=== PATIENT | male | born 1990 | race Caucasian/White ===

== ENCOUNTER 2019-02-20 13:29 | Emergency (ER) | payer MEDICAID, OTHER ==
[~2019-02-20] VITALS: Ht 182.9 cm; Wt 74.0 kg
[~2019-02-20 13:29] MED LIST: LIDOcaine 1% w/EPI 1:100,000 30ml vial (MDV) ONE
[2019-02-20 13:38] VITALS: BP 124/79
[2019-02-20] MEDS ORDERED: TETanus/Pertussis (Acell)/Diphther VAC/PF (Tdap-Adult) 0.5ml syringe IMVAC ONE (15:05)
== END 2019-02-20 15:42 | disposition home or self-care (01) ==
LOC: ER 13:31
DX: S61.412A Laceration without foreign body of left hand, initial encounter (principal); S60.511A Abrasion of right hand, initial encounter; Z88.0 Allergy status to penicillin; Z88.1 Allergy status to other antibiotic agents; W22.8XXA Striking against or struck by other objects, initial encounter; Y93.89 Activity, other specified; Y92.89 Other specified places as the place of occurrence of the external cause; Y99.8 Other external cause status
CPT/HCPCS: 12001; 90471; 99283

== ENCOUNTER 2019-03-16 14:15 | Emergency (ER) | payer MEDICAID, OTHER ==
[~2019-03-16] VITALS: Ht 182.9 cm; Wt 77.3 kg
[~2019-03-16 14:15] MED LIST changes: +LIDOcaine 1% 30ml preserv. free vial ONE; -LIDOcaine 1% w/EPI 1:100,000 30ml vial (MDV) ONE
[2019-03-16] MEDS ORDERED: bacitracin 15gm ointment TP ONE (15:35)
--- NOTE | 2019-03-16 16:24 | NUR ---
PT BECAME TEARFUL AT DC. STATING TO RN THAT HE WAS SI. NOTIFIED AND IS RE-EVAL PT
[2019-03-16 16:57] LABS: BASOPHILS % (AUTO) 0.5 % (0-1); EOSINOPHILS # (AUTO) 0.1 X10'3 (0-0.9); EOSINOPHILS % (AUTO) 0.8 % (0-6); HEMATOCRIT 46.9 % (42.0-52.0); HEMOGLOBIN 16.3 g/dl (14.0-17.9); LYMPHOCYTES # (AUTO) 1.8 X10'3 (1.1-4.8); LYMPHOCYTES % (AUTO) 21.9 % (21-51); MEAN CORPUSCULAR HEMOGLOBIN 30.3 PG (27.0-31.0); MEAN CORPUSCULAR HGB CONC 34.8 g/dL (33.0-36.5); MEAN CORPUSCULAR VOLUME 87.1 FL (78-98); MEAN PLATELET VOLUME 8.9 FL (7.4-10.4); MONOCYTES # (AUTO) 0.4 X10'3 (0-0.9); MONOCYTES % (AUTO) 5.1 % (2-12); NEUTROPHILS # (AUTO) 5.8 X10'3 (1.8-7.7); NEUTROPHILS % (AUTO) 71.7 % (42-75); PLATELET COUNT 174 X10'3 (140-440); RED BLOOD COUNT 5.38 X10'6 (4.70-6.10); RED CELL DISTRIBUTION WIDTH 12.9 % (11.5-14.5); WHITE BLOOD COUNT 8.1 X10'3 (4.5-11.0)
[2019-03-16 17:14] LABS: ALANINE AMINOTRANSFERASE 19 U/L (12-78); ALBUMIN 4.3 G/DL (3.4-5.0); ALBUMIN/GLOBULIN RATIO 1.4 (1.1-1.5); ALKALINE PHOSPHATASE 85 IU/L (46-116); ANION GAP 8 (8-16); ASPARTATE AMINO TRANSFERASE 11 U/L (10-37); BILIRUBIN,TOTAL 0.5 MG/DL (0.1-1.0); BLOOD UREA NITROGEN 8 MG/DL (7-18); BUN/CREATININE RATIO 8.7 (5.4-32.0); CHLORIDE 103 MMOL/L (99-107); CREATININE 0.92 MG/DL (0.60-1.10); ETHANOL 0.026 GM/DL (0.0-0.010); GLUCOSE 81 MG/DL (70-104); POTASSIUM 4.5 MMOL/L (3.5-5.1); SODIUM 141 MMOL/L (135-145); TOTAL CARBON DIOXIDE 29.7 MMOL/L (24-32); TOTAL PROTEIN 7.4 G/DL (6.4-8.2); eGFR > 90 ML/MIN
--- NOTE | 2019-03-16 17:20 | NUR ---
Received pt from wound care for suicidal thoughts. Pt states vague thoughts like he had when he made a suicide attempt 3 years ago, but that he wouldn't act on them, "I couldn't kill myself". Pt tearful during interaction with RN.
[2019-03-16 17:24] LABS: URINE AMPHETAMINE SCREEN NEGATIVE (Neg); URINE BARBITUATE SCREEN NEGATIVE (Neg); URINE BENZODIAZEPINES SCREEN NEGATIVE (Neg); URINE CANNABINOID SCREEN NEGATIVE (Neg); URINE COCAINE SCREEN NEGATIVE (Neg); URINE METHADONE SCREEN NEGATIVE (Neg); URINE OPIATE SCREEN NEGATIVE (Neg); URINE PHENCYCLIDINE SCREEN NEGATIVE (Neg)
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
[2019-03-16] MEDS ORDERED: LORazepam 1 MG tablet PO ONE (19:10)
--- NOTE | 2019-03-16 19:30 | NUR ---
Pt given books, bible, and tea to help comfort and calm him while he awaits evaluation.
--- NOTE | 2019-03-16 19:55 | NUR ---
Pt being assessed by [facility].
--- NOTE | 2019-03-16 21:20 | NUR ---
Pt states he wants to appeal the hold. He is talking on the phone with a friend.
--- NOTE | 2019-03-16 21:50 | NUR ---
Pt reading the bible. Pt provided with warm blankets and ear plugs.
--- NOTE | 2019-03-16 22:12 | NUR ---
Pt resting in bed.
--- NOTE | 2019-03-17 01:41 | NUR ---
Pt sleeping, no distress noted, breathing even and unlabored.
--- NOTE | 2019-03-17 04:45 | NUR ---
Pt sleeping, no distress noted, breathing even and unlabored.
--- NOTE | 2019-03-17 06:40 | NUR ---
Patient sleeping on right side. No distress observed. Continue to monitor.
--- NOTE | 2019-03-17 08:50 | NUR ---
Patient anxious and pacing in front of nurses station. Patient states he is anxious. Patient fidgeting with hands. RN spoke to Dr Butt ordered Atarax for anxiety. Continue to monitor.
[2019-03-17] MEDS: hydrOXYzine 25 MG tablet PO PRN (09:08)
--- NOTE | 2019-03-17 12:58 | NUR ---
PT "SCHOOL MATE" VASQUEZ CALLED WISHING TO SPEAK TO THE PT, PT REQUESTS HE CALLS BACK LATER TODAY.
--- NOTE | 2019-03-17 13:58 | NUR ---
break note:patient asleep.We will monitor.
--- NOTE | 2019-03-17 15:10 | NUR ---
Patient agitated because he wanted genetic supervisor from [facility] to re-evaluate him. RN had spoken to Yue earlier who stated too many patients to see to re-eval since his 5150 was just placed yesterday. RN advised patient and patient got upset and went back to his bed. Continue to monitor.
--- NOTE | 2019-03-17 16:05 | NUR ---
Patient presented to [facility] and declined.
--- NOTE | 2019-03-17 18:30 | NUR ---
Received report and assumed care of patient from MAXIMO Godoy.
--- NOTE | 2019-03-17 18:49 | NUR ---
The patient is up out of bed pacing and generally being rude to staff. The patient states that 2 days ago some RN told him he didn't have to remove all his underwear, so he won't. The patient is getting agitated over not being able to leave and is threatening that he is going to cause trouble for staff.
--- NOTE | 2019-03-17 20:33 | NUR ---
Pt removed red allergy band and pt ID band. Bands placed in chart; RN aware.
--- NOTE | 2019-03-18 00:45 | NUR ---
The patient is sleeping on his right side. RR unlabored. No s/s of distress.
--- NOTE | 2019-03-18 01:09 | NUR ---
Pt appears to be sleeping, lying on his left side with blankets covering to shoulders. RR 14 and unlabored. Staff within view of Pt AAT.
--- NOTE | 2019-03-18 03:49 | NUR ---
The patient sleep in supune position. RR unlabored. No s/s of distress.
[2019-03-18 05:30] VITALS: BP 115/79
--- NOTE | 2019-03-18 05:46 | NUR ---
The patient is sleeping on his left side. Resp. unlabored. No s/s of distress.
--- NOTE | 2019-03-18 06:49 | NUR ---
Report received from off going RN. Pt currently lying on right side in bed and appears comfortable. No needs expressed at this time.
[2019-03-18] MEDS: hydrOXYzine 25 MG tablet PO PRN (08:12)
--- NOTE | 2019-03-18 08:41 | NUR ---
Pt up to breakfast requesting PRN meds. Pt also requesting reevaluation from [facility]. Pt calm and cooperative.
--- NOTE | 2019-03-18 08:54 | NUR ---
Pt accepted to [facility], pending MD discharge orders.
--- NOTE | 2019-03-18 11:17 | NUR ---
Pt DC'd to [facility]. DC orders obtained by MD Crooks. Pt sent with transporter to [facility]. All belongings sent with pt.
[2019-03-19] MEDS ORDERED: HYDR50TA65 PO ×2 (11:37→11:53)
== END 2019-03-18 10:52 ==
LOC: ER 14:16
DX: S61.012A Laceration without foreign body of left thumb without damage to nail, initial encounter (principal); Z88.0 Allergy status to penicillin; Z88.1 Allergy status to other antibiotic agents; W45.8XXA Other foreign body or object entering through skin, initial encounter; Y93.G1 Activity, food preparation and clean up; Y92.89 Other specified places as the place of occurrence of the external cause; Y99.8 Other external cause status
CPT/HCPCS: 12001; 36415; 80053; 80305; 80320; 85025; 99285; J2001; Z7610

== ENCOUNTER 2019-03-18 09:50 | Inpatient (IN) | payer MEDICAID ==
[~2019-03-18] VITALS: Ht 182.9 cm; Wt 74.9 kg
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
[2019-03-18] MEDS ORDERED: acetaminophen 325mg tablet PO PRN ×2 (11:40)
[2019-03-18] MEDS ORDERED: magnesium hydroxide 30ml (MOM) UD suspension PO PRN (11:40)
[2019-03-18] MEDS ORDERED: NICOTINE POLACRILEX 2 MG LOZENGE BC PRN (11:40)
[2019-03-18] MEDS ORDERED: loperamide 2mg capsule PO PRN (11:40)
[2019-03-18] MEDS ORDERED: mag hydrox/Alum hydrox/simeth 30ml oral suspension PO PRN (11:40)
[2019-03-18] MEDS ORDERED: LORazepam 1 MG tablet PO PRN (11:40)
[2019-03-18] MEDS: hydrOXYzine 25 MG tablet PO PRN (19:30)
[2019-03-18 19:52] VITALS: BP 129/85
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
[2019-03-19] MEDS: hydrOXYzine 25 MG tablet PO PRN (08:00)
[2019-03-19] MEDS ORDERED: nicotine 21mg patch - 24 hr TD SCH (08:00)
[2019-03-19 08:02] LABS: CHOL/HDL RATIO 2.5 (0.00-4.99); CHOLESTEROL 116 MG/DL (0-200); HDL CHOLESTEROL 46 MG/DL (35-60); LDL CHOLESTEROL 66 MG/DL (50-100); TRIGLYCERIDES 61 MG/DL (20-135)
[2019-03-19] MEDS ORDERED: HYDR50TA65 PO ×2 (11:37→11:53)
--- NOTE | 2019-03-19 12:40 | NUR ---
Met with Ct to complete Psychosocial Assessment. He wants to discharge today. He denied any current SI. He plans on following up with Kwesi Morocho for counseling. He was goal directed and future oriented. MARK Robert Addendum: 03/19/19 at 1241 by Ashly Black SS Amended: Links added.
== END 2019-03-19 12:28 | disposition home or self-care (01) | DRG 755 ==
LOC: ADULT MH 10:55
PROVIDERS: ADMIT Psychiatry & Neurology Psychiatry; ATTEND Psychiatry & Neurology Psychiatry
DX: F43.25 Adjustment disorder with mixed disturbance of emotions and conduct (principal); R45.851 Suicidal ideations; W25.XXXA Contact with sharp glass, initial encounter; S61.012A Laceration without foreign body of left thumb without damage to nail, initial encounter; S60.512A Abrasion of left hand, initial encounter; S60.511A Abrasion of right hand, initial encounter; Z88.1 Allergy status to other antibiotic agents; Z88.0 Allergy status to penicillin; Z59.9 Problem related to housing and economic circumstances, unspecified; Z91.5 Personal history of self-harm; Y93.89 Activity, other specified; Y92.89 Other specified places as the place of occurrence of the external cause; Y99.8 Other external cause status
CPT/HCPCS: 36415; 80061; 83036; 87081; Z7610

== ENCOUNTER 2020-01-05 16:37 | Emergency (ER) | payer MEDICAID ==
[~2020-01-05] VITALS: Ht 182.9 cm; Wt 79.0 kg
[~2020-01-05 16:37] MED LIST changes: +HYDR50TA65 PO; -LIDOcaine 1% 30ml preserv. free vial ONE
[2020-01-05] MEDS ORDERED: LIDOcaine 1% W/epiNEPHrine 1:200,000 10ml vial IJ ONE (17:05)
[2020-01-05] MEDS ORDERED: TETanus/Pertussis (Acell)/Diphther VAC/PF (Tdap-Adult) 0.5ml syringe IMVAC ONE (17:05)
[2020-01-05 18:52] VITALS: BP 132/78
== END 2020-01-05 18:45 | disposition home or self-care (01) ==
LOC: ER 16:38
DX: S61.411A Laceration without foreign body of right hand, initial encounter (principal); M79.641 Pain in right hand; Z72.89 Other problems related to lifestyle; Z88.0 Allergy status to penicillin; Z88.1 Allergy status to other antibiotic agents; Z79.899 Other long term (current) drug therapy; X58.XXXA Exposure to other specified factors, initial encounter; Y93.89 Activity, other specified; Y92.89 Other specified places as the place of occurrence of the external cause; Y99.8 Other external cause status
CPT/HCPCS: 12002; 99282